=== PATIENT | male | born 1995 | race Caucasian/White ===

== ENCOUNTER 2021-12-11 21:51 | Emergency (ER) | payer SELFPAY ==
[~2021-12-11] VITALS: Ht 175.3 cm; Wt 134.3 kg
[2021-12-11 22:11] VITALS: BP 136/83
== END 2021-12-12 02:31 | disposition home or self-care (01) ==
LOC: ER 21:51
DX: M79.10 Myalgia, unspecified site (principal); V28.4XXA Motorcycle driver injured in noncollision transport accident in traffic accident, initial encounter; Y93.89 Activity, other specified; Y92.410 Unspecified street and highway as the place of occurrence of the external cause; Y99.8 Other external cause status